=== PATIENT | male | born 1985 | race African-American/Black ===

== ENCOUNTER 2017-04-06 09:45 | Emergency (ER) | payer SELFPAY ==
[~2017-04-06] VITALS: Ht 188 cm; Wt 99.8 kg
[2017-04-06 09:52] VITALS: BP 142/101
--- NOTE | 2017-04-06 10:08 | ER Report ---
History and Physical Time Seen By MD: 10:00 Hx. of Stated Complaint: PT R EYE WAS IRRITATED ON SAT, TODAY AWOKE WITH EYE PUFFY AND WATERING, MATTD SHUT THIS AM HPI/ROS CHIEF COMPLAINT: Eye pain HISTORY OF PRESENT ILLNESS: 31-year-old male no history of medical issues comes emergency Department today with redness of his right eye crusting on his lashes obvious injected sclera and conjunctiva no history of trauma no visual changes or acuity no additional complaints noted REVIEW OF SYSTEMS: Respiratory: No cough, no dyspnea. Cardiovascular: No chest pain, no palpitations. Gastrointestinal: No vomiting, no abdominal pain. Musculoskeletal: No back pain. Remainder of the 14 system rev: Yes Allergies: Coded Allergies: No Known Drug Allergies (Unverified , 04/06/17) Home Meds No Active Prescriptions or Reported Meds Reviewed Nurses Notes: Yes Old Medical Records Reviewed: Yes Hx Substance Use Disorder: No Hx Alcohol Use: Yes (OCC) Constitutional Vital Sign - Last 24 Hours 04/06/17 09:52 Temp 98.7 Pulse 65 Resp 20 B/P (MAP) 142/101 Pulse Ox 95 O2 Delivery Room Air Physical Exam General appearance: Alert no distress. Respiratory: Chest is non tender, lungs are clear to auscultation. Cardiac: Regular rate and rhythm [ ] I examination examination the right eye is consistent with obvious conjunctival infection irritation most likely a bacterial conjunctivitis extraoculars were intact visual acuity normal otherwise unremarkable exam DIFFERENTIAL DIAGNOSIS: After history and physical exam differential diagnosis was considered for bacterial conjunctivitis Medical Decision Making ED Course/Re-evaluation ED Course ED clinical course examination assisted by marsha and was started on topical antibiotic drops follow up with primary care as needed Decision to Disposition Date: Apr 06, 2017 Decision to Disposition Time: 10:11 Depart Departure Latest Vital Signs Vital Signs Date Time Temp Pulse Resp B/P (MAP) Pulse Ox O2 Delivery O2 Flow Rate FiO2 04/06/17 09:52 98.7 65 20 142/101 95 Room Air Impression: Primary Impression: Conjunctivitis Condition: Improved Disposition: HOME OR SELF-CARE Referrals: JOSE G SIMMONS 5 Days New Scripts No Active Prescriptions or Reported Meds Patient Instructions: Conjunctivitis (ED) PETER ORTIZ MD Apr 06, 2017 10:08
== END 2017-04-06 10:22 | disposition home or self-care (01) ==
LOC: ER 10:16
DX: H10.9 Unspecified conjunctivitis (principal)
CPT/HCPCS: 99282